=== PATIENT | female | born 1980 | race African-American/Black ===

== ENCOUNTER 2019-06-04 08:41 | Day surgery (SDC) | payer OTHER ==
[2019-06-04] MEDS ORDERED: Ringers Lactate 1,000 ML IV ONE (09:01)
[2019-06-04 09:32] LABS: Specific Gravity 1.025 (1.005-1.030)
[2019-06-04] MEDS ORDERED: PROPOFOL 200 MG/20 ML VIAL IV ONE (10:20)
[2019-06-04] MEDS ORDERED: MIDAZOLAM HCL 2 MG/2 ML INJ ONE ×2 (10:21→10:47)
[2019-06-04] MEDS ORDERED: FENTANYL CITR 100 MCG/2 ML ONE (10:21)
[2019-06-04] MEDS ORDERED: LIDOCAINE 1% MPF 5 ML VIAL ONE (10:21)
[2019-06-04] MEDS ORDERED: LIDOCAINE 1% W/EPI 1:100,000 MDV 20 ML VIAL ONE (10:22)
[2019-06-04] MEDS ORDERED: NA CHLORIDE 0.9% 0 ML ONE (10:35)
[2019-06-04] MEDS ORDERED: VASOPRESSIN 20 UNIT/ML VIAL ONE (10:36)
[2019-06-04] MEDS ORDERED: KETOROLAC 30 MG/ML INJ ONE (11:12)
[2019-06-04] MEDS ORDERED: ONDANSETRON 4 MG/2 ML VIAL ONE (11:20)
[2019-06-04] MEDS ORDERED: SUCCINYLCHOLINE 20 MG/ML (10 ML) IV ONE (11:55)
--- NOTE | 2019-06-04 23:23 | OP ---
Date of Procedure: 06/04/2019 Surgeon: Marly Shaw MD Preoperative Diagnosis: Persistent ALETA 1, greater than 5 years. Postoperative Diagnosis: Persistent ALETA 1, greater than 5 years. Procedure Performed: Cervical colposcopy, LEEP (loop electro excision procedure), endocervical curet tage. Anesthesia: General with LMA. Specimens: LEEP and ECC. Complications: No complications. Drains: No drains. Condition: Stable. 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 Patient without any near future fertility plans, offered referral for a cryo or laser, which are not available here versus a LEEP procedure. The pat ient wanted to proceed with the LEEP. Her ECC was negative. So, plan was to perform a LEEP procedur e with ECC. No need for a bulky specimen. Complications including cervical stenosis, cervical insuf ficiency during any subsequent if she was going to carry which could lead to labor and complications related to labor, patient understood all these and wanted to procee d with the LEEP. Procedure In Detail: She was consented and brought to the hospital. Choose the hospital because she was unable to tolerate a pelvic exam. When colposcopy was done in the office, difficult to stay sti ll and her pain tolerance is low for this and doing this under anesthesia would give the best optimum chance for completion of the procedure in an optimal fashion. So, after she was consented and broug ht to the hospital, she was re-consented in preop, taken back to the OR, placed in a supine fashion o n the operating table. After general anesthesia was given, she was placed in a dorsal lithotomy posi tion and speculum was placed to expose the cervix, painted with 5% acetic acid. Very mild acetowhite epithelium was seen at 11 o'clock close to the inner margin. The colposcopy was adequate . Lidocaine 1% mixed with 1:100,000 epinephrine, 10 cc was injected in a circumferential fashion ting und the ectocervix. Then, a medium wide loop was taken and starting at 3 o'clock, a sweep was taken from left to right. There was not satisfactory excision at 8 o'clock position, so an inner margin wa s taken and then a special cut was taken at the 8 o'clock since there was a ALETA 1 here. The base of the colon was kept shallow since the ECC was negative. ECC was then performed and a ball cautery was used at 60 [address] to cauterize all the edges and the base especially paying attention to all the cammy pheral margins. Then, astringent was placed x2 in the base of the cone. There was excellent hemosta sis. All instruments were removed. Instrument, needle, and sponge counts were done and were correct at the end of the case. Patient tolerated the procedure well. She was recovered from anesthesia an d taken to the PACU in stable condition. She will follow up with me in 3 weeks. All precautions hav e been given for the LEEP. WENDY/MISSY Voice ID: [id number] Report ID: [id number]
== END 2019-06-04 13:16 | disposition home or self-care (01) ==
LOC: OR 08:41
PROVIDERS: ATTEND Obstetrics & Gynecology
PROC: 0UBC8ZX Excision of Cervix, Via Natural or Artificial Opening Endoscopic, Diagnostic (ICD-10-PCS; principal; 2019-06-04 10:30)
DX: N87.0 Mild cervical dysplasia (principal); N72 Inflammatory disease of cervix uteri; N87.9 Dysplasia of cervix uteri, unspecified; E78.5 Hyperlipidemia, unspecified; I10 Essential (primary) hypertension; Z79.899 Other long term (current) drug therapy
CPT/HCPCS: 57460; 81025; 88305; 88307; J2704; J0330; J2250 ×2; J3010; J2405